=== PATIENT | female | born 1950 | race Caucasian/White ===

== ENCOUNTER 2017-05-21 06:36 | Day surgery (SDC) | payer OTHER ==
[~2017-05-21 06:36] MED LIST: ATOR10TA68 PO; EMPA25TA PO; GLIP-195 PO; GLU500 PO; LEVO88TA5 PO
[2017-05-21] MEDS ORDERED: SIMETHICONE 40 MG/0.6 ML ML ONE (06:56)
[2017-05-21] MEDS ORDERED: MEPERIDINE HCL/PF 100 MG/ML AMP ONE (06:58)
[2017-05-21] MEDS ORDERED: MIDAZOLAM HCL 5 MG/5 ML VIAL ONE (06:59)
[2017-05-21 12:05] VITALS: BP_SYST 136
== END 2017-05-21 09:40 | disposition home or self-care (01) ==
LOC: SDS 06:36 → SMU 10:00
PROVIDERS: ATTEND Internal Medicine Gastroenterology
DX: Z09 Encounter for follow-up examination after completed treatment for conditions other than malignant neoplasm (principal); Z87.19 Personal history of other diseases of the digestive system; Z80.0 Family history of malignant neoplasm of digestive organs; D12.2 Benign neoplasm of ascending colon; D12.3 Benign neoplasm of transverse colon; K57.30 Diverticulosis of large intestine without perforation or abscess without bleeding; K64.8 Other hemorrhoids; E78.5 Hyperlipidemia, unspecified; Z90.710 Acquired absence of both cervix and uterus; Z90.49 Acquired absence of other specified parts of digestive tract; E11.9 Type 2 diabetes mellitus without complications; Z79.4 Long term (current) use of insulin; I10 Essential (primary) hypertension; E07.9 Disorder of thyroid, unspecified
CPT/HCPCS: 45380; 82962; 88305; J2175; J2250; J7030

== ENCOUNTER 2017-09-06 12:54 | Outpatient (CLI) | payer OTHER | END 2017-09-06 21:09 | disposition home or self-care (01) | LOC: SMA 12:54 | PROVIDERS: ATTEND Internal Medicine Geriatric Medicine | DX: Z12.31 Encounter for screening mammogram for malignant neoplasm of breast (principal) | CPT/HCPCS: 77067 ==

== ENCOUNTER 2017-09-10 06:34 | Day surgery (SDC) | payer OTHER ==
[~2017-09-10] VITALS: Ht 162.6 cm; Wt 69.9 kg
[2017-09-10] MEDS ORDERED: POLYMYXIN 500,000/BACIT.10,000 UNITS in NS IRR 1 L IR ONE (07:32)
[2017-09-10] MEDS ORDERED: fentaNYL CITRATE/PF 100 MCG/2 ML AMP IVP PRN ×2 (08:45)
[2017-09-10] MEDS ORDERED: ONDANSETRON HCL 4 MG/2 ML VIAL IVP PRN (08:45)
[2017-09-10] MEDS ORDERED: fentaNYL CITRATE/PF 100 MCG/2 ML AMP ONE (10:48)
[2017-09-10] MEDS ORDERED: fentaNYL CITRATE/PF 100 MCG/2 ML AMP IVP ONE ×3 (10:48→11:08)
[2017-09-10 11:40] VITALS: BP_SYST 138
[2017-09-10] MEDS ORDERED: ACETAMINOPHEN 325 MG TABLET ONE (12:51)
[2017-09-10] MEDS ORDERED: ACETAMINOPHEN 500 MG TABLET PO ONE (13:00)
== END 2017-09-10 14:15 | disposition home or self-care (01) ==
LOC: SOR 06:34 → SMU 06:35 → SOR 14:15
PROVIDERS: ATTEND Otolaryngology
DX: J32.9 Chronic sinusitis, unspecified (principal); Z79.899 Other long term (current) drug therapy; Z98.890 Other specified postprocedural states; E11.9 Type 2 diabetes mellitus without complications
CPT/HCPCS: 30140; 30520; 31240; 31255; 31256; 31296; 31297; 82962; 87070; 87075; 88305; 88311; C1726; J3010; J7120